=== PATIENT | female | born 1990 | race Caucasian/White ===

== ENCOUNTER 2018-11-10 15:02 | Emergency (ER) | payer OTHER ==
[~2018-11-10] VITALS: Ht 167.6 cm; Wt 62.1 kg
[2018-11-10] MEDS ORDERED: SYNTHROID150 MCG (15:26)
== END 2018-11-10 17:40 | disposition home or self-care (01) ==
LOC: ER 15:02
DX: R20.0 Anesthesia of skin (principal); G35 Multiple sclerosis

== ENCOUNTER 2020-03-20 10:36 | Outpatient (CLI) | payer OTHER ==
[~2020-03-20 10:36] MED LIST: SYNTHROID150 MCG
== END 2020-03-20 10:50 | disposition home or self-care (01) ==
LOC: SONOGRAMA 10:36
PROVIDERS: ATTEND Obstetrics & Gynecology
DX: Z00.8 Encounter for other general examination (principal)

== ENCOUNTER 2025-06-21 07:04 | Emergency (ER) | payer OTHER ==
[~2025-06-21] VITALS: Ht 170.2 cm; Wt 62.1 kg
[2025-06-21] MEDS ORDERED: LEVO-T137 MCG PO (07:31)
[2025-06-21] MEDS ORDERED: ZOLOFT50 MG PO (07:31)
[2025-06-21] MEDS ORDERED: OCREVUS ZUNOVO23 ML SQ (07:32)
[2025-06-21] MEDS ORDERED: OCREVUS300 MG/10 IV (07:33)
[2025-06-21] MEDS ORDERED: 0.9 % SODIUM CHLORIDE 1,000 ML IV SCH (08:00)
[2025-06-21 08:58] LABS: BASO % 0.8 % (0.1-1.2); EOS # 0.06 (0.04-0.54); EOS % 0.6 % (0.7-7.0); LYMPH # 1.01 (1.18-3.74); LYMPH % 9.9 % (19.3-53.1); MEAN PLATELET VOLUME 10.40 fl (9.4-12.4); MONO # 0.49 (0.24-0.82); MONO % 4.8 % (4.7-12.5); NEUT # 8.54 (1.56-6.13); NEUT % 83.5 % (34.0-71.1); RED CELL DISTRIBUTION WIDTH 20.1 % (11.6-14.4)
[2025-06-21 09:07] LABS: URINE APPEARANCE Clear; URINE BILIRRUBIN Negative (NEGATIVE); URINE BLOOD Small; URINE COLOR Yellow; URINE GLUCOSE Negative (NEGATIVE); URINE KETONE Negative (NEGATIVE); URINE LEUKOCYTE Negative; URINE NITRATE Negative; URINE PROTEIN Negative (NEGATIVE); URINE UROBILINOGEN 0.2 E.U./dl
[2025-06-21 09:10] LABS: URINE BACTERIA 4.7 uL (0.0-1933); URINE EPITHELIAL CELLS 3.6 uL (0.0-38.8); URINE RBC 3.6 uL (0.0-20.8); URINE WBC 4.4 uL (0.0-23.2)
[2025-06-21 09:13] LABS: URINE CAST 0.00 uL (0.0-1.40)
[2025-06-21 09:18] LABS: INR 0.98
[2025-06-21 10:05] LABS: ALT/SGPT 15.0 U/L (12-78); AST/SGOT 6.0 U/L (15-37); BILIRUBIN TOTAL 0.38 mg/dL (0.3-1.2); BUN CREA RATIO 16.0 (7.0-25.0); CREATININE SERUM 0.62 mg/dL (0.55-1.02); GFR 110.85; GLOBULINA 3.2 G/DL (2.4-3.5); GLUCOSE FASTING 122.0 mg/dL (65-100); HCG QUANTITATIVE 19.0 mUI/mL (1-3); OSMOLALITY SERUM 283.0 MOSM/KG (275-295)
== END 2025-06-21 11:24 | disposition home or self-care (01) ==
LOC: ER 07:05
PROVIDERS: Physician Assistant Medical
DX: O03.9 Complete or unspecified spontaneous abortion without complication (principal); G35.D Multiple sclerosis, unspecified; Z88.1 Allergy status to other antibiotic agents; E03.8 Other specified hypothyroidism